=== PATIENT | male | born 1945 | race Caucasian/White ===

== ENCOUNTER → 2016-07-08 | Day surgery (SDC) | payer MEDICARE, BC ==
[~2016-07-08] VITALS: Ht 180.3 cm; Wt 93.2 kg
[~2016-07-08] MED LIST: ASPIRIN EC81 MG PO; PRILOSEC20 MG PO; PRINIVIL (ZESTR20 MG PO
--- NOTE | ~2016-07-08 | OR ---
PATIENT'S NAME: ROCIO ERWIN [facility] AGE: 71 Y [address] ROOM: [place] [id number] LOCATION: [facility] [place] ADMIT DATE: 07/08/2016 OR/Procedure Report DISCHARGE DATE: FAMILY PHYSICIAN: Musa Andrea MD ATTENDING PHYSICIAN: Lucho Solomon SURGEON: Lucho Solomon MD ART DIRECTOR: DATE OF PROCEDURE: 07/08/2016 PREOPERATIVE DIAGNOSES: 1. History of cancer of the bladder. 2. Hematuria. 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 OPERATION: 1. Cystoscopy and retrogrades. 2. Cystoscopy and endoscopic bladder biopsies. DESCRIPTION OF PROCEDURE: After adequate anesthesia, he was prepped and draped. A 21 ACMI scope was passed. The anterior urethra was normal. Prostatic fossa showed just early lateral lobe enlargement. A urine sample was obtained for culture. Examination of bladder revealed diffuse inflammatory changes throughout the bladder which looked like probably diffuse carcinoma in situ. Although it could be infection, but in the office last week, his urine just showed hematuria with no pyuria or bacteriuria. Bilateral retrograde pyelograms were done with a whistle-tip catheter. With endoscopic forceps, biopsies were taken. These biopsies were fulgurated with the Bugbee electrode. He was then accompanied to recovery area. RETROGRADE PYELOGRAM REPORT: Revealed degenerative changes of the lumbar spine. After injection of contrast media, the ureters were normal course and caliber. Kidneys were normal size, normal position. Calyceal system filled out nicely with no filling defects. IMPRESSION: Normal retrograde pyelograms. PATIENT'S NAME: ROCIO ERWIN [facility] AGE: 71 Y [address] ROOM: [place] [id number] LOCATION: [facility] [place] ADMIT DATE: 07/08/2016 OR/Procedure Report DISCHARGE DATE: FAMILY PHYSICIAN: Musa Andrea MD ATTENDING PHYSICIAN: Lucho Solomon MD EKL/modl /[id number] CC: Musa Busby MD d: 07/08/16 1409 t: 07/10/16 0444, OPERATIVE SUMMARY
--- NOTE | ~2016-07-08 | HP ---
PATIENT'S NAME: ROCIO ERWIN [facility] AGE: 71 Y [address] ROOM: [place] [address] LOCATION: [facility] [place] ADMIT DATE: 07/08/2016 History & Physical DISCHARGE DATE: FAMILY PHYSICIAN: Musa Andrea MD ATTENDING PHYSICIAN: Lucho Solomon DATE OF SERVICE: HISTORY OF PRESENT ILLNESS: A 71-year-old white male, who was well until October 2015 when he apparently began having gross hematuria. At that time, he was found to have a bladder tumor which was resected transurethrally. Apparently, he was told this was benign but he was instructed to return for followup cystoscopies and apparently this was not done. He then was seen in [place] and had an unpleasant experience there and was then referred to [facility]. Recently, he again has had episodes of gross hematuria with no dysuria, burning, or other voiding symptoms. He voids with a good full-stream with no difficulty. Apparently, his PSAs have been done in [place] that have all been normal. No other history of urinary tract disease or infections. He was in [employer] and was in [place] from 1963 to 1966, but apparently was not exposed to [place]. He mainly was around [facility]. He smoked until 1 month ago. He was born in [place], [place]. He ran away from home at age 14 and joined the [employer]. 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 PAST MEDICAL HISTORY: Illnesses: Hypertension. OPERATIONS: As above. ALLERGIES: NONE KNOWN. PHYSICAL EXAMINATION: GENERAL: A well-developed, well-nourished male, 216 pounds. CHEST: Clear. PATIENT'S NAME: ROCIO ERWIN [facility] AGE: 71 Y [address] ROOM: [place] [address] LOCATION: [facility] [place] ADMIT DATE: 07/08/2016 History & Physical DISCHARGE DATE: FAMILY PHYSICIAN: Musa Andrea MD ATTENDING PHYSICIAN: Lucho Solomon HEART: Normal sinus rhythm. ABDOMEN: Soft with no palpable masses. : Normal penis. Testicles are normal to palpation. Prostate is normal size, smooth, and benign to palpation. RECTAL: Negative. IMPRESSION: 1. Hematuria. 2. 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 PLAN: Cystoscopy and bladder biopsies. MD SHAY MAYL/modl /[id number] CC: Musa Andrea MD D: [id number] T: [id number] HISTORY & PHYSICAL
== END | disposition disaster alternative care site (69) ==
LOC: GPOC 07-06 14:00 → GSDC 05:08
PROC: 0TBB8ZX Excision of Bladder, Via Natural or Artificial Opening Endoscopic, Diagnostic (ICD-10-PCS; principal; 2016-07-08)
PROC: 0TBB8ZX Excision of Bladder, Via Natural or Artificial Opening Endoscopic, Diagnostic (ICD-10-PCS; 2016-07-08)
PROC: BT14ZZZ Fluoroscopy of Kidneys, Ureters and Bladder (ICD-10-PCS; 2016-07-08)
DX: N30.01 Acute cystitis with hematuria (principal); N30.21 Other chronic cystitis with hematuria; I10 Essential (primary) hypertension; Z87.891 Personal history of nicotine dependence; Z85.51 Personal history of malignant neoplasm of bladder; Z98.890 Other specified postprocedural states
CPT/HCPCS: J0713; J2001; J7040; J7120